=== PATIENT | female | born 1960 | race Caucasian/White ===

== ENCOUNTER 2017-07-25 06:02 | Day surgery (SDC) | payer OTHER ==
[~2017-07-25 06:02] MED LIST: CEFAZOLIN 1 GM/50 ML (PMX) 50 ML IVPB; SOD CHLORIDE 0.9% 1,000 ML IV
[2017-07-25] MEDS ORDERED: GLYCOPYRROLATE 0.4 MG INJ (07:00)
[2017-07-25] MEDS ORDERED: NEOSTIGMINE 3 MG/3 ML SYRINGE (07:00)
[2017-07-25] MEDS ORDERED: ROCURONIUM 50 MG INJ (07:00)
[2017-07-25] MEDS ORDERED: POLYMYXIN/BACITRACIN 1L IRRIG (07:02)
[2017-07-25] MEDS ORDERED: MIDAZOLAM 1 MG/ML 2 ML INJ (07:33)
[2017-07-25] MEDS: BUPIVACAINE 0.25% (MPF) 30 ML INJ (08:39)
[2017-07-25] MEDS: ONDANSETRON 4 MG INJ IV (08:53)
[2017-07-25] MEDS: MEPERIDINE 25 MG INJ IV (08:54)
[2017-07-25] MEDS: morphine (1 MG/ML) 10ML SYRINGE IV ×2 (08:59→09:09)
[2017-07-25] MEDS ORDERED: FENTAnyl 50 MCG/ML VIAL IV (09:00)
[2017-07-25] MEDS ORDERED: morphine (1 MG/ML) 10ML SYRINGE IV (09:00)
[2017-07-25] MEDS ORDERED: DIPHENHYDRAMINE 50 MG INJ IV (09:00)
[2017-07-25] MEDS: HYDROCODONE/APAP (5/325) TAB PO (09:16)
[2017-07-25] MEDS ORDERED: LIDOCAINE 2% (SDV) 5 ML INJ (09:46)
[2017-07-25] MEDS ORDERED: CEFAZOLIN 1 GM INJ (09:46)
[2017-07-25] MEDS ORDERED: PROPOFOL 20 ML (09:46)
== END 2017-07-25 11:19 | disposition home or self-care (01) ==
LOC: SDS 06:02
DX: K43.0 Incisional hernia with obstruction, without gangrene (principal)
CPT/HCPCS: 49655; 71045; 93005

== ENCOUNTER 2019-01-17 18:53 | Emergency (ER) | payer OTHER | END 2019-01-17 19:27 | disposition home or self-care (01) | LOC: E/R 18:53 | DX: R59.9 Enlarged lymph nodes, unspecified (principal) | CPT/HCPCS: 99283; Z7502 ==